=== PATIENT | female | born 1945 | race Caucasian/White ===

== ENCOUNTER 2017-09-08 20:55 | Observation (INO) | payer MEDICARE ==
[~2017-09-08] VITALS: Ht 152.4 cm; Wt 105.7 kg
[2017-09-08 21:04] VITALS: BP 189/76
--- NOTE | 2017-09-08 21:05 | NUR ---
The patient, BEKA SU, 72 y/o, F admitted by ANYI ZAPIEN MD, was given written information regarding hospital policies, unit procedures and contact persons. Valuables were checked and logged. Call light at bedside. Will continue to monitor.
[2017-09-08] MEDS ORDERED: CELE-20 PO (21:45)
[2017-09-08] MEDS ORDERED: DILT180C64 PO (21:45)
[2017-09-08] MEDS ORDERED: FENO160T PO (21:45)
[2017-09-08] MEDS ORDERED: AMIT25TA PO (21:45)
[2017-09-08] MEDS ORDERED: TRAM50TA PO (21:45)
[2017-09-08] MEDS ORDERED: imitrex IH (21:48)
[2017-09-08] MEDS ORDERED: OMEP20TA63 PO (21:51)
[2017-09-08 22:07] VITALS: BP 181/75
[2017-09-08] MEDS ORDERED: ELECTROLYTE (NON-ICU) PROTOCOL MC PRN (23:00)
[2017-09-08] MEDS ORDERED: CALCIUM CARBONATE 500 MG TAB.CHEW PO PRN (23:00)
[2017-09-08] MEDS ORDERED: LACTULOSE 20 GM/30 ML SOLUTION. PO PRN (23:00)
[2017-09-08] MEDS ORDERED: ACETAMINOPHEN 325 MG TABLET PO PRN (23:00)
[2017-09-08] MEDS ORDERED: 0.9 % SODIUM CHLORIDE 10 ML DISP.SYRIN. IV PRN (23:00)
[2017-09-08 23:07] VITALS: BP 132/72
[2017-09-08] MEDS ORDERED: FOSFOMYCIN TROMETHAMINE 3 GM PACKET PO ONE (23:15)
[2017-09-09] VITALS (10 sets, daily range): BP systolic 132–164; BP diastolic 55–82
[2017-09-09] MEDS: traMADol 50 MG TABLET PO SCH ×2 (06:13)
[2017-09-09 06:52] LABS: BASO % 0 % (0-3); EOS # 0.2 x10^3/uL (0.0-0.7); EOS % 2 % (0-3); HEMATOCRIT 38.1 % (36.0-47.0); HEMOGLOBIN 13.1 g/dL (12.0-15.5); LYMPH # 2.1 x10^3/uL (1.0-4.8); LYMPH % 23 % (24-48); MEAN CORPUSCULAR HEMOGLOBIN 31 pg (25-35); MEAN CORPUSCULAR HGB CONC 35 g/dL (31-37); MEAN CORPUSCULAR VOLUME 89 fL (79-100); MONO % 11 % (0-9); NEUT # 5.8 x10^3uL (1.8-7.7); NEUT % 64 % (31-73); PLATELET COUNT 225 x10^3/uL (140-400); RED CELL DISTRIBUTION WIDTH 13.7 % (11.5-14.5); WHITE BLOOD COUNT 9.1 x10^3/uL (4.0-11.0)
[2017-09-09 06:59] LABS: CREATININE 0.8 mg/dL (0.6-1.0); GFR 70.5; POTASSIUM 3.9 mmol/L (3.5-5.1)
[2017-09-09] MEDS ORDERED: PANTOPRAZOLE 40 MG TABLET. PO SCH (07:30)
[2017-09-09] MEDS ORDERED: CELECOXIB 200 MG CAPSULE PO SCH (09:00)
[2017-09-09] MEDS ORDERED: FENOFIBRATE NANOCRYSTALLIZED 145 MG TABLET PO SCH (09:00)
--- NOTE | 2017-09-09 11:32 | DISCH ---
DISCHARGE INSTRUCTIONS-DC Condition on Discharge Condition on Discharge: Stable Problems: Activity after Discharge Activity Instructions for Disc: Activity as tolerated Diet after Discharge Diet after Discharge: Cardiac Checks after Discharge Checks after discharge: Check blood press - daily Contacting the [facility] after DC Call your doctor for: If your condition worsens Follow-Up Follow up with: Call PCP tomorrow for culture results ANYI ZAPIEN MD Sep 09, 2017 11:32
--- NOTE | 2017-09-09 11:42 | PDOC1 ---
History of Present Illness Reason for Visit: Vtach History of Present Illness Pt was seen in ER at [facility] last night w/ c/o UTI. She received Rocephin and penitentiary through the infusion she developed an allergic reaction w/ SOA and urticaria. She was given IV pepcid, benadryl, and epi. She developed tachycardia (sinus) and had a 4 beat run of Vtach. She was given amiodarone. She has since been fine. Overnight here she has had no issues and no symptoms. We gave her a dose of Monurol last night. She wants to go home. Chief Complaint: Vtach Allergies: Coded Allergies: ceftriaxone (Verified Allergy, Intermediate, 09/08/17) Penicillins (Verified Allergy, Unknown, 09/08/17) aspirin (Verified Allergy, Unknown, 09/08/17) ciprofloxacin (Verified Allergy, Unknown, 09/08/17) oxycodone (Verified Allergy, Unknown, 09/08/17) Past Medical History Cardiac: CAD, hyperipidemia Pulmonary: Other (Sleep apnea) GI: GERD Musculoskeletal: Osteoarthritis Past Surgical History: Tubal Ligation, Hysterectomy Family History: No pertinent hx Past Social History Smoke: No Alcohol: none Drugs: None Lives: with Family Review of Systems Review Of Systems Fourteen system , review of systems has been reviewed. See HPI for pertinent positives and negative responses, other [place] all other systems are negative, non pertinent or non contributory Allergies: Coded Allergies: ceftriaxone (Verified Allergy, Intermediate, 09/08/17) Penicillins (Verified Allergy, Unknown, 09/08/17) aspirin (Verified Allergy, Unknown, 09/08/17) ciprofloxacin (Verified Allergy, Unknown, 09/08/17) oxycodone (Verified Allergy, Unknown, 09/08/17) Medications Current Medications Sodium Chloride (Normal Saline Flush) 3 ml PRN DAILY PRN IV AFTER MEDS AND BLOOD DRAWS; Start 09/08/17 at 23:00 Acetaminophen (Tylenol) 650 mg PRN Q6HRS PRN PO Headaches, Temp > 101.5F; Start 09/08/17 at 23:00 Lactulose 20 gm PRN Q12HR PRN PO CONSTIPATION; Start 09/08/17 at 23:00 Calcium Carbonate/ Glycine (Tums) 500 mg PRN Q3HRS PRN PO HEARTBURN / GAS; Start 09/08/17 at 23:00 Info 1 ea CONT PRN PRN MC SEE COMMENTS; Start 09/08/17 at 23:00 Amitriptyline HCl (Elavil) 100 mg QHS PO ; Start 09/09/17 at 21:00 Celecoxib (CeleBREX) 200 mg DAILY PO Last administered on 09/09/17at 08:18; Start 09/09/17 at 09:00 Diltiazem HCl (Cardizem 24hr Cd) 180 mg DAILY PO Last administered on at 08:18; Start 09/09/17 at 09:00 Tramadol HCl (Ultram) 50 mg Q6HRS PO Last administered on 09/09/17at 06:13; Start 09/09/17 at 00:00 Fenofibrate (Tricor) 145 mg DAILY PO Last administered on 09/09/17at 08:18; Start 09/09/17 at 09:00 Pantoprazole Sodium (Protonix) 40 mg DAILYAC PO Last administered on 09/09/17at 08:18; Start 09/09/17 at 07:30 Fosfomycin Tromethamine (Monurol) 3 gm 1X ONCE PO Last administered on at 23:56; Start 09/08/17 at 23:15; Stop 09/08/17 at 23:16; Status DC Active Scripts Active Reported Prilosec Otc (Omeprazole Magnesium) 20 Mg Tablet.dr 1 Tab PO DAILY [imitrex ] 1 [place] [facility] PRN PRN Cartia Xt (Diltiazem Hcl) 180 Mg Cap.er.24h 180 Mg PO DAILY Fenofibrate 160 Mg Tablet 160 Mg PO DAILY Amitriptyline Hcl 25 Mg Tablet 100 Mg PO QHS Celecoxib 200 Mg Capsule 200 Mg PO DAILY Tramadol Hcl (Tramadol HCl) 50 Mg Tablet 50 Mg PO Q6HRS Exam Vital Signs Vital Signs Date Time Temp Pulse Resp B/P (MAP) Pulse Ox O2 Delivery O2 Flow Rate FiO2 09/09/17 11:10 79 164/75 (104) 09/09/17 08:00 Nasal Cannula 2.0 09/09/17 07:29 93 09/09/17 06:25 98.8 09/09/17 06:13 18 General Appearance: Alert, Oriented X3, Cooperative, No acute distress HEENT: Atraumatic, PERRLA, EOMI, Mucous membr. moist/pink, Other (Neck without JVD or LAD) Respiratory: Clear to auscultation, Normal air movement Heart: Regular rate, Normal S1, Normal S2, No murmurs Abdominal: Soft, No tenderness Extremities: No edema, Normal pulses Skin: No rashes Neuro: Strength at 5/5 X4 ext, Normal tone, Sensation intact, Cranial nerves 3- 12 NL Psych/Mental Status: Mental status NL, Mood NL Assessment/Plan Assessment/Plan 1. Vtach: only 4 beats, in midst of Sinus tach after epi dose. No further issues. There is no indication to keep her in the hospital any longer. Pt can f/u with her PCP. Consider holter monitor, though this may not be necessary. 2. UTI: Treated w/ Monurol x 1. Pt to call PCP's office in AM to see if culture results available. 3. HPL/HTN/CAD/OA: Cont home meds. COURSE Allergies Coded Allergies Type Severity Reaction Last Updated Verified ceftriaxone Allergy Intermediate 09/08/17 Yes Penicillins Allergy Unknown 09/08/17 Yes aspirin Allergy Unknown 09/08/17 Yes ciprofloxacin Allergy Unknown 09/08/17 Yes oxycodone Allergy Unknown 09/08/17 Yes Laboratory Tests Test 09/09/17 06:19 White Blood Count 9.1 x10^3/uL (4.0-11.0) Red Blood Count 4.30 x10^6/uL (3.50-5.40) Hemoglobin 13.1 g/dL (12.0-15.5) Hematocrit 38.1 % (36.0-47.0) Mean Corpuscular Volume 89 fL (79-100) Mean Corpuscular Hemoglobin 31 pg (25-35) Mean Corpuscular Hemoglobin Concent 35 g/dL (31-37) Red Cell Distribution Width 13.7 % (11.5-14.5) Platelet Count 225 x10^3/uL (140-400) Neutrophils (%) (Auto) 64 % (31-73) Lymphocytes (%) (Auto) 23 % (24-48) Monocytes (%) (Auto) 11 % (0-9) Eosinophils (%) (Auto) 2 % (0-3) Basophils (%) (Auto) 0 % (0-3) Neutrophils # (Auto) 5.8 x10^3uL (1.8-7.7) Lymphocytes # (Auto) 2.1 x10^3/uL (1.0-4.8) Monocytes # (Auto) 1.0 x10^3/uL (0.0-1.1) Eosinophils # (Auto) 0.2 x10^3/uL (0.0-0.7) Basophils # (Auto) 0.0 x10^3/uL (0.0-0.2) Sodium Level 145 mmol/L (136-145) Potassium Level 3.9 mmol/L (3.5-5.1) Chloride Level 111 mmol/L (98-107) Carbon Dioxide Level 26 mmol/L (21-32) Anion Gap 8 (6-14) Blood Urea Nitrogen 14 mg/dL (7-20) Creatinine 0.8 mg/dL (0.6-1.0) Estimated GFR (Cockcroft-Gault) 70.5 Glucose Level 127 mg/dL (70-99) Calcium Level 9.0 mg/dL (8.5-10.1) Current Medications Medications (Trade) Dose Ordered Sig/Jackeline Route PRN Reason Start Time Stop Time Status Last Admin Dose Admin Sodium Chloride (Normal Saline Flush) 3 ml PRN DAILY PRN IV AFTER MEDS AND BLOOD DRAWS 09/08/17 23:00 Acetaminophen (Tylenol) 650 mg PRN Q6HRS PRN PO Headaches, Temp > 101.5F 09/08/17 23:00 Lactulose 20 gm PRN Q12HR PRN PO CONSTIPATION 09/08/17 23:00 Calcium Carbonate/ Glycine (Tums) 500 mg PRN Q3HRS PRN PO HEARTBURN / GAS 09/08/17 23:00 Info 1 ea CONT PRN PRN MC SEE COMMENTS 09/08/17 23:00 Amitriptyline HCl (Elavil) 100 mg QHS PO 09/09/17 21:00 Celecoxib (CeleBREX) 200 mg DAILY PO 09/09/17 09:00 09/09/17 08:18 Diltiazem HCl (Cardizem 24hr Cd) 180 mg DAILY PO 09/09/17 09:00 09/09/17 08:18 Tramadol HCl (Ultram) 50 mg Q6HRS PO 09/09/17 00:00 1/14/18 06:13 Fenofibrate (Tricor) 145 mg DAILY PO 09/09/17 09:00 09/09/17 08:18 Pantoprazole Sodium (Protonix) 40 mg DAILYAC PO 09/09/17 07:30 09/09/17 08:18 Fosfomycin Tromethamine (Monurol) 3 gm 1X ONCE PO 09/08/17 23:15 09/08/17 23:16 DC 09/08/17 23:56 I & O 09/09/17 00:00 Intake Total 0 ml Balance 0 ml Vital Signs Date Time Temp Pulse Resp B/P (MAP) Pulse Ox O2 Delivery O2 Flow Rate FiO2 09/09/17 11:10 79 164/75 (104) 09/09/17 08:00 Nasal Cannula 2.0 09/09/17 07:29 93 09/09/17 06:25 98.8 09/09/17 06:13 18 ANYI ZAPIEN MD Sep 09, 2017 11:42
--- NOTE | 2017-09-09 11:45 | PDOC3 ---
Discharge Summary Discharge Summary Date of Admission Date of Admission: Sep 08, 2017 at 20:55 Admitting Diagnosis 1. Vtach, nonsustained 2. UTI 3. OA 4. HPL 5. CAD Date of Discharge: Sep 09, 2017 Discharge Diagnosis 1. Vtach, nonsustained 2. UTI 3. OA 4. HPL 5. CAD Laboratory Findings Laboratory Tests Test 09/09/17 06:19 White Blood Count 9.1 x10^3/uL (4.0-11.0) Red Blood Count 4.30 x10^6/uL (3.50-5.40) Hemoglobin 13.1 g/dL (12.0-15.5) Hematocrit 38.1 % (36.0-47.0) Mean Corpuscular Volume 89 fL (79-100) Mean Corpuscular Hemoglobin 31 pg (25-35) Mean Corpuscular Hemoglobin Concent 35 g/dL (31-37) Red Cell Distribution Width 13.7 % (11.5-14.5) Platelet Count 225 x10^3/uL (140-400) Neutrophils (%) (Auto) 64 % (31-73) Lymphocytes (%) (Auto) 23 % (24-48) Monocytes (%) (Auto) 11 % (0-9) Eosinophils (%) (Auto) 2 % (0-3) Basophils (%) (Auto) 0 % (0-3) Neutrophils # (Auto) 5.8 x10^3uL (1.8-7.7) Lymphocytes # (Auto) 2.1 x10^3/uL (1.0-4.8) Monocytes # (Auto) 1.0 x10^3/uL (0.0-1.1) Eosinophils # (Auto) 0.2 x10^3/uL (0.0-0.7) Basophils # (Auto) 0.0 x10^3/uL (0.0-0.2) Sodium Level 145 mmol/L (136-145) Potassium Level 3.9 mmol/L (3.5-5.1) Chloride Level 111 mmol/L (98-107) Carbon Dioxide Level 26 mmol/L (21-32) Anion Gap 8 (6-14) Blood Urea Nitrogen 14 mg/dL (7-20) Creatinine 0.8 mg/dL (0.6-1.0) Estimated GFR (Cockcroft-Gault) 70.5 Glucose Level 127 mg/dL (70-99) Calcium Level 9.0 mg/dL (8.5-10.1) Hospital Course Pt sent from [place] ER to [facility] for observation after 4 beat nonsustained vtach occurred during episode of sinus tach following epinephrine dose which followed allergic reaction to Rocephin. Pt has had no recurrence of rash overnight and VSS. NO vtach seen on telemetry. Pt wants to go home. I notified pt's PCP Dr. White of her condition and events of last night, and informed him that pt would be calling tomorrow to see if culture results from [place] were available. Pt was given one dose of Monurol 3 grams here in hospital. Condition at Discharge: Stable Home Meds Reported Medications Omeprazole Magnesium (PRILOSEC OTC) 20 Mg Tablet.dr, 1 TAB PO DAILY, #30 TAB 3 Refills 09/08/17 [imitrex ] No Conflict Check, 1 [facility] PRN Y for MIGRAINE HEADACHE 09/08/17 Diltiazem Hcl (CARTIA XT) 180 Mg Cap.er.24h, 180 MG PO DAILY for ELEVATED BP, SEE COMMENTS 09/08/17 Fenofibrate (FENOFIBRATE) 160 Mg Tablet, 160 MG PO DAILY 09/08/17 Amitriptyline Hcl (AMITRIPTYLINE HCL) 25 Mg Tablet, 100 MG PO QHS for PAIN 09/08/17 Celecoxib (Celecoxib) 200 Mg Capsule, 200 MG PO DAILY for PAIN 09/08/17 Tramadol Hcl (TRAMADOL HCL) 50 Mg Tablet, 50 MG PO Q6HRS for PAIN 09/08/17 Inpatient Meds Current Medications Sodium Chloride (Normal Saline Flush) 3 ml PRN DAILY PRN IV AFTER MEDS AND BLOOD DRAWS; Start 09/08/17 at 23:00 Acetaminophen (Tylenol) 650 mg PRN Q6HRS PRN PO Headaches, Temp > 101.5F; Start 09/08/17 at 23:00 Lactulose 20 gm PRN Q12HR PRN PO CONSTIPATION; Start 09/08/17 at 23:00 Calcium Carbonate/ Glycine (Tums) 500 mg PRN Q3HRS PRN PO HEARTBURN / GAS; Start 09/08/17 at 23:00 Info 1 ea CONT PRN PRN MC SEE COMMENTS; Start 09/08/17 at 23:00 Amitriptyline HCl (Elavil) 100 mg QHS PO ; Start 09/09/17 at 21:00 Celecoxib (CeleBREX) 200 mg DAILY PO Last administered on 09/09/17at 08:18; Start 09/09/17 at 09:00 Diltiazem HCl (Cardizem 24hr Cd) 180 mg DAILY PO Last administered on at 08:18; Start 09/09/17 at 09:00 Tramadol HCl (Ultram) 50 mg Q6HRS PO Last administered on 09/09/17at 06:13; Start 09/09/17 at 00:00 Fenofibrate (Tricor) 145 mg DAILY PO Last administered on 09/09/17at 08:18; Start 09/09/17 at 09:00 Pantoprazole Sodium (Protonix) 40 mg DAILYAC PO Last administered on 09/09/17at 08:18; Start 09/09/17 at 07:30 Fosfomycin Tromethamine (Monurol) 3 gm 1X ONCE PO Last administered on at 23:56; Start 09/08/17 at 23:15; Stop 09/08/17 at 23:16; Status DC Active Scripts Active Reported Prilosec Otc (Omeprazole Magnesium) 20 Mg Tablet.dr 1 Tab PO DAILY [imitrex ] 1 [place] [facility] PRN PRN Cartia Xt (Diltiazem Hcl) 180 Mg Cap.er.24h 180 Mg PO DAILY Fenofibrate 160 Mg Tablet 160 Mg PO DAILY Amitriptyline Hcl 25 Mg Tablet 100 Mg PO QHS Celecoxib 200 Mg Capsule 200 Mg PO DAILY Tramadol Hcl (Tramadol HCl) 50 Mg Tablet 50 Mg PO Q6HRS Activity: as tolerated Diet: Cardiac Follow-up Plan Call PCP tomorrow for culture results, f/u in 1-2 weeks ANYI ZAPIEN MD Sep 09, 2017 11:45
--- NOTE | 2017-09-09 12:17 | NUR ---
Pt discharged from the hospital. Instruction provided to pt, IV discontinued. VSS at discharge. Pt off unit via wheelchair accompanied by daughter.
[2017-09-09] MEDS ORDERED: AMITRIPTYLINE HCL 100 MG TABLET PO SCH (21:00)
== END 2017-09-09 12:18 | disposition home or self-care (01) ==
LOC: ICU 20:55 → UNDOADMOB 20:55 → INTOOBSV 20:55 → ICU 20:55 → UNDODISOB 09-09 12:18
PROVIDERS: ADMIT Family Medicine; ATTEND Family Medicine
DX: I47.2 Ventricular tachycardia (principal); N39.0 Urinary tract infection, site not specified; I25.10 Atherosclerotic heart disease of native coronary artery without angina pectoris; E78.5 Hyperlipidemia, unspecified; K21.9 Gastro-esophageal reflux disease without esophagitis; M19.90 Unspecified osteoarthritis, unspecified site; G47.30 Sleep apnea, unspecified
CPT/HCPCS: 36415; 80048; 85025; 87641; G0378; G0379